=== PATIENT | male | born 1955 | race Hispanic/Latino ===

== ENCOUNTER 2020-03-02 22:28 | Emergency (ER) | payer OTHER, SELFPAY ==
[2020-03-02] VITALS (8 sets, daily range): BP systolic 140–149; BP diastolic 81–95; PULSE 80–92; RESP 18–23; TEMP 37.6; O2SAT 95–100
--- NOTE | ~2020-03-02 | XR_ITS ---
XR chest 1V DATE: 03/02/2020 23:02 INDICATION: Right chest, upper abdominal pain. Nausea. Diarrhea. TECHNIQUE: PA chest COMPARISON: 06/30/2010 2 view chest FINDINGS: Normal heart size. Mild aortic tortuosity. No hilar or mediastinal enlargement. No pulmonary infiltrate or consolidation, pleural effusion or pulmonary vascular congestion or pneumo thorax. Degenerative change of the thoracic and lumbar spine. IMPRESSION: No active cardiopulmonary disease Reviewed, dictated and finalized at location A. ICULTURAL NURSERY ASSISTANT
--- NOTE | ~2020-03-02 | CT_ITS ---
EXAMINATION: CT abdomen pelvis w con EXAM DATE: 03/03/2020 00:42 INDICATION: Abdominal pain. TECHNIQUE: Spiral CT of the abdomen and pelvis was performed following intravenous injection of 100 m L Omnipaque 350. Axial, coronal and sagittal images were reviewed. The dose-length product (DLP) fo r this examination was 624.92 mGy-cm. The exposure was tailored according to patient size (auto mA e xposure control), and iterative reconstruction (ASIR) was used as additional dose reduction technique . There is no prior study for comparison. FINDINGS: There is a 2.0 cm right adrenal lesion, statistically most likely adenoma but indeterminate density on this study. The right adrenal gland, liver, spleen and pancreas are unremarkable. Gallbla dder is unremarkable. No biliary obstruction. Portal and splenic veins are patent. Kidneys enhance symmetrically. There is no hydronephrosis. There is small bilateral inguinal fat-containing hernia s. prostatomegaly. The bladder is unremarkable. There is no retroperitoneal or pelvic lymphadenopat hy. There is mild to moderate scattered arteriosclerotic disease. There are no findings to suggest appendicitis. Mildly distended fluid-filled ileum, possible mild en teritis. There is expected amount of colonic stool. No free intraperitoneal gas. The heart is no rmal in size. There are no pericardial or pleural effusions. The lung bases are unremarkable. Ther e are no osteoblastic or osteolytic lesions identified. IMPRESSION: 1. Possible ileal enteritis. 2. Indeterminate right adrenal gland nodule, differential diagnosis including adenoma and metastatic disease. There are no prior studies for comparison? Consider abdomen MRI without contrast. 3. Small inguinal fat-containing hernias. Reviewed, dictated and finalized at location A. MOLOGY PROFESSOR IMPRESSION: 1. Possible ileal enteritis. 2. Indeterminate right adrenal gland nodule, differential diagnosis including a denoma and metastatic disease. There are no prior studies for comparison? Consi jayla abdomen MRI without contrast. 3. Small inguinal fat-containing hernias.
--- NOTE | 2020-03-02 22:45 | ECG_ITS ---
Measurements Intervals [place] Rate: 83 P: 19 CT: 186 QRS: -45 QRSD: 110 T: 52 QT: 358 QTc: 422 Interpretive Statements SINUS RHYTHM LEFT AXIS DEVIATION INTRAVENTRICULAR CONDUCTION DELAY POOR R WAVE PROGRESSION, ANTERIOR LEADS BASELINE ARTIFACT- V4-V5 BORDERLINE ECG Electronically Signed On 03-03-2020 6:30:22 [employer] by Jose Clancy D.O.
[2020-03-02 23:13] LABS: Basophils Percent Auto 0.1 % (0.2-1.2); Eosinophils Absolute Auto 0.1 K/mm3 (0-0.3); Eosinophils Percent Auto 0.8 % (0-4.4); Immature Granulocyte Absolute 0.06 K/mm3 (0.00-0.031); Immature Granulocyte Percent A 0.4 % (0-0.5); Lymphocytes Absolute Auto 0.79 K/mm3 (0.9-3.2); Lymphocytes Percent Auto 5.5 % (18.3-44.2); Mean Corpuscular Hemoglobin 32.1 pg (26-34); Mean Corpuscular Volume 94.4 fl (80-100); Mean Platelet Volume 10.9 fl (7.4-10.4); Monocytes Absolute Auto 0.6 K/mm3 (0.1-0.6); Monocytes Percent Auto 4.2 % (2.6-8.5); Neutrophils Absolute Auto 12.8 K/mm3 (1.3-6.7); Platelet Count Result 201 k/mm3 (150-375); Red Blood Count 4.98 M/mm3 (4.6-6.20); Red Cell Distribution Width 13.3 % (11.5-14.5); White Blood Count 14.4 K/mm3 (4.5-10.0)
[2020-03-02 23:22] LABS: Add Urine Microscopic? YES; Appearance Urine Clear (Clear); Bilirubin Urine Negative (Negative); Blood Urine Negative (Negative); Color Urine Yellow (Yellow); Glucose Urine UA Negative (Negative); Ketones Urine Negative (Negative); Leukocyte Esterase Ur Negative LEU/UL (Negative); Mucus Urine Moderate /lpf; Nitrate Urine Negative (Negative); Protein Urine 1+ mg/dL (Negative); RBC Urine 0-2 /hpf (0-2); Specific Grav Ur 1.026 (1.001-1.035); Squamous Epithelial Cell Urine Rare /hpf (Few); Urobilinogen Urine Negative mg/dL (<2.0); WBC Urine 0-3 /hpf
[2020-03-02 23:30] LABS: Alanine Aminotransferase 23 U/L (4-50); Albumin Level 4.3 g/dL (3.5-5.1); Alkaline Phosphatase 110 U/L (38-126); Anion Gap 11 mmol/L (8-16); Aspartate Amino Transferase 25 U/L (17-59); Bilirubin,Total 0.7 mg/dL (0.2-1.3); Blood Urea Nitrogen 17 mg/dL (9-20); Calcium 8.8 mg/dL (8.4-10.2); Carbon Dioxide 21 mmol/L (22-30); Chloride 107 mmol/L (98-107); Estimated CRCL calculation 74 ml/min; Estimated Glomerular Filt Rate > 60; Glucose 151 mg/dL (75-110); Potassium 4.2 mmol/L (3.4-5.0); Sodium 139 mmol/L (137-145)
[2020-03-02 23:31] LABS: Lipase 72 U/L (23-300)
[2020-03-02 23:44] LABS: Troponin I < 0.012 ng/mL (0.000-0.034)
[2020-03-03] VITALS (16 sets, daily range): BP systolic 130–165; BP diastolic 88–110; PULSE 65–79; RESP 14–24; O2SAT 94–100
--- NOTE | 2020-03-03 00:01 | ED.GENADULT ---
HPI - General Adult General Chief complaint: Abdominal Pain Stated complaint: abd pain Time Seen by Provider: 03/02/20 23:38 Source: patient History of Present Illness HPI narrative: Patient is a 65 y/o male complaining of intermittent epigastric pain since this morning. He describes his pain as a cramping and rates it as 5/10. There is no alleviating or exacerbating factor. He has no nausea or vomiting. He had one episode of diarrhea. Related Data Home Medications Medication Instructions Recorded Confirmed hydrocodone-acetaminophen 1 tablet TID PRN 03/02/20 lisinopril 20 mg DAILY 03/02/20 03/02/20 lovastatin 20 mg DAILY 03/02/20 meloxicam 15 mg DAILY 03/02/20 Allergies Allergy/AdvReac Type Severity Reaction Status Date / Time No Known Allergies Allergy Verified 10/07/16 13:18 Review of Systems Constitutional: Constitutional: Denies chills, Denies fever(s), Denies headache(s) and Denies weakness Eyes: Eyes: Denies blurry vision ENT: Denies headache(s) and Denies neck pain Cardiovascular: Cardiovascular: Denies chest pain and Denies dyspnea Respiratory: Respiratory: Denies cough and Denies dyspnea Gastrointestinal: Gastrointestinal: Denies abdominal pain, Reports diarrhea, Denies nausea and Denies vomiting Genitourinary: Genitourinary: Denies hematuria and Denies dysuria Musculoskeletal: Musculoskeletal: Denies back pain and Denies neck pain Neurologic: Denies headache(s) and Denies weakness Exam Const: General: no acute distress and well developed Orientation/consciousness: oriented to person, oriented to place, oriented to time and patient oriented x3 HENMT: Head: normocephalic Ears: external ears normal General nose exam: Normal external nose present Eyes: General: appearance normal, both eyes and all related structures Conjunctivae: conjunctivae normal Neck: Neck: normal visual inspection and full ROM Chest: Chest palpation & inspection: normal inspection of the chest and no tenderness Resp: Effort & Inspection: normal respiratory effort Auscultation: clear to auscultation bilaterally Cardio: Rate: regular rate Rhythm: regular rhythm GI: GI Palp: No abdominal tenderness and Yes Soft to palpation Skin: General skin exam: normal color and turgor normal Neuro: General: oriented to person, oriented to place, oriented to time and patient oriented x3 Cognition (Neuro): normal cognition Extrem: General: normal to inspection, full ROM and no pedal edema Psych: Appearance: grossly normal Mental Status: mental status grossly normal Affect: normal affect Course Reevaluation(s) Reevaluation #1: Rechecked. Patient feels well. He has no abdominal pain. Date: 03/03/20 Time: 02:04 Vital Signs Vital signs: Vital Signs Temperature 37.6 C 03/02/20 22:29 Pulse Rate 92 03/02/20 22:29 Respiratory Rate 18 03/02/20 22:29 Blood Pressure 148/81 H 03/02/20 22:29 Pulse Oximetry 100 03/02/20 22:29 Temperature 37.6 C 03/02/20 22:29 Pulse Rate 73 03/03/20 02:01 Respiratory Rate 21 H 03/03/20 02:01 Blood Pressure 142/110 H 03/03/20 02:01 Pulse Oximetry 98 03/03/20 02:01 Medical Decision Making Vital Signs Vital Signs: Vital Signs Temperature 37.6 C 03/02/20 22:29 Pulse Rate 92 03/02/20 22:29 Respiratory Rate 18 03/02/20 22:29 Blood Pressure 148/81 H 03/02/20 22:29 Pulse Oximetry 100 03/02/20 22:29 Temperature 37.6 C 03/02/20 22:29 Pulse Rate 73 03/03/20 02:01 Respiratory Rate 21 H 03/03/20 02:01 Blood Pressure 142/110 H 03/03/20 02:01 Pulse Oximetry 98 03/03/20 02:01 Lab Data Result diagrams: 03/02/20 22:42 03/02/20 22:42 Labs: Lab Results 03/02/20 03/02/20 03/02/20 Range/Units 22:42 22:42 22:58 WBC 14.4 H (4.5-10.0) K/mm3 RBC 4.98 (4.6-6.20) M/mm3 Hgb 16.0 (14.0-18.0) g/dL Hct 47.0 (42.0-52.0) % MCV 94.4 (80-100) fl MCH 32.1 (26-34) pg MCHC 34.0
--- NOTE | 2020-03-03 00:22 | PC.NURSE ---
resting on stretcher. on BP and O2 monitors. call light in reach. updated on current treatment plan and expected.
--- NOTE | 2020-03-03 00:32 | PC.NURSE ---
patient went to CT scan via stretcher.
== END 2020-03-03 02:12 | disposition home or self-care (01) ==
PROVIDERS: Emergency Medicine; Emergency Provider Emergency Medicine; PCP Internal Medicine
DX: K52.9 Noninfective gastroenteritis and colitis, unspecified (principal); I45.9 Conduction disorder, unspecified; R94.31 Abnormal electrocardiogram [ECG] [EKG]
CPT/HCPCS: 36415; 71045; 74177; 80053; 81001; 83690; 84484; 85025; 93005; 99284; Q9967

== ENCOUNTER → 2021-07-26 16:19 | Outpatient (CLI) | payer OTHER, SELFPAY ==
--- NOTE | ~2021-07-26 | XR_ITS ---
EXAM: XR cervical spine 4-5V DATE: 07/26/2021 16:43 HISTORY: NECK PAIN . COMPARISON: None available. FINDINGS: Decreased mineralization. Craniocervical association and atlantoaxial joint are aligned, w ith mild degenerative change. Vertebral bodies are aligned. Mild disc narrowing at C5-6. Mild right C 5-6 neural foraminal narrowing. No severe right neural foraminal narrowing. The left oblique view is nondiagnostic. Multilevel facet sclerosis. IMPRESSION: Mild degenerative disc disease and right neural foraminal narrowing at C5-6. Mild multile lisa facet arthropathy. Suboptimally visualized left neural foramen and uncovertebral joints. Reviewed, dictated and finalized at location K. IMPRESSION: Mild degenerative disc disease and right neural foraminal narrowing at C5-6. Mild multilevel facet arthropathy. Suboptimally visualized left neura l foramen and uncovertebral joints.
== END ==
PROVIDERS: Visit Provider Radiology Diagnostic Radiology
DX: M47.812 Spondylosis without myelopathy or radiculopathy, cervical region (principal)
CPT/HCPCS: 72050